=== PATIENT | male | born 1995 | race Caucasian/White ===

== ENCOUNTER 2021-04-21 08:56 | Emergency (ER) | payer OTHER ==
[~2021-04-21] VITALS: Ht 182.9 cm; Wt 104.9 kg
[2021-04-21] MEDS ORDERED: HYDROcodone/APAP 5/325MG 1 TAB TABLET PO ONE (09:30)
[2021-04-21] MEDS ORDERED: DIPHTH,PERTUSS(ACELL),TET TOX 0.5 ML DISP.SYRIN. VAX IM ONE (09:30)
--- NOTE | 2021-04-21 09:49 | PHYS DOC ---
General Adult EDM: Chief Complaint: LACERATION/AVULSION HPI: HPI: Patient is a 25 year old male who presents with laceration to his left thumb. Patient states he was at work when he was trying to remove a log night when his hand slipped and was cut on a piece of stainless steel. Range of motion and se nsation is intact. Denies taking anything for pain prior to arrival. Unknown last tetanus. Denies medical history. Review of Systems: Review of Systems: ROS At least 10 ROS systems have been reviewed and are negative except as documented in the HPI. General: Negative except as outlined in HPI above. Skin: Negative except as outlined in HPI above. HEENT: Negative except as outlined in HPI above. Neck: Negative except as outlined in HPI above. Respiratory: Negative except as outlined in HPI above.. Cardiovascular: Negative except as outlined in HPI above. Abdomen: Negative except as outlined in HPI above. : Negative except as outlined in HPI above. Back/MSK: Negative except as outlined in HPI above. Neuro: Negative except as outlined in HPI above. Psych: Negative except as outlined in HPI above. Heart Score: C/O Chest Pain: No Risk Factors: Risk Factors: DM, Current or recent (<one month) smoker, HTN, HLP, family his tory of CAD, obesity. Risk Scores: Score 0 - 3: 2.5% MACE over next 6 weeks - Discharge Home Score 4 - 6: 20.3% MACE over next 6 weeks - Admit for Clinical Observation Score 7 - 10: 72.7% MACE over next 6 weeks - Early Invasive Strategies Allergies: Allergies: Allergies Coded Allergies Type Severity Reaction Last Updated Verified No Known Drug Allergies 04/21/21 No Physical Exam: PE: Constitutional: Well developed, well nourished, no acute distress, non-toxic appearance. [] HENT: Normocephalic, atraumatic, bilateral external ears normal, oropharynx moist, no oral exudates, nose normal. [] Eyes: PERRLA, EOMI, conjunctiva normal, no discharge. [] Neck: Normal range of motion, no tenderness, supple, no stridor. [] Cardiovascular:Heart rate regular rhythm, no murmur [] Lungs & Thorax: Bilateral breath sounds clear to auscultation [] Abdomen: Bowel sounds normal, soft, no tenderness, no masses, no pulsatile masses. [] Skin: 3 inch, laceration to medial side of left thumb. Back: No tenderness, no CVA tenderness. [] Extremities: No tenderness, no cyanosis, no clubbing, ROM intact, no edema. [] Neurologic: Alert and oriented X 3, normal motor function, normal sensory function, no focal deficits noted. [] Psychologic: Affect normal, judgement normal, mood normal. [] EKG: EKG: [] Radiology/Procedures: Radiology/Procedures: []EXAM: Left hand, 3 views. HISTORY: Thumb laceration. COMPARISON: None. FINDINGS: 3 views of the left hand are obtained. There is no acute fracture, dislocation or subluxation. There is a small incidental benign bone island within the scaphoid. There may be a small cyst within the lunate. There is no radiodense foreign body. IMPRESSION: No acute osseous finding. Electronically signed by: Claudine Vazquez MD (04/21/2021 9:53 AM) [id number] Course & Med Decision Making: Course & Med Decision Making Pertinent Labs and Imaging studies reviewed. (See chart for details) [] 25-year-old male presents with laceration to medial side left thumb after cutting it on a piece of stainless steel at work. Sensation and range of motion are intact. Unknown last tetanus. X-ray ordered to rule out foreign body and fracture. Pain treated in the emergency room. X-ray is unremarkable. Tetanus updated. No signs of foreign body or fracture on x-ray. Wound was cleaned and lidocaine applied to numb the area. Sutures were placed. Patient tolerated procedure well. Discussed aftercare of laceration. Educated on signs of infection to watch for. Ibuprofen for pain. Dragon Disclaimer: Dragangelica Disclaimer: This electronic medical record was generated, in whole or in part, using a voice recognition dictation system. Laceration Repair Lac Repair Indication: 3laceration to left, medial thumb Procedure: The patient was placed in the appropriate position and anesthesia around the laceration was injected. the area was then cleaned. The laceration was closed, 12 sutures placed. The wound area was then dressed with nonadhesive gauze. Total repaired wound length: 3 inches. Other Items: N/A The patient tolerated the procedure well Complications: N/A. Departure Departure Impression: Primary Impression: Laceration of thumb, left Qualified Codes: S61.012A - Laceration without foreign body of left thumb without damage to nail, initial encounter Disposition: HOME / SELF CARE / HOMELESS Condition: STABLE Patient Instructions: Laceration Care, Adult, [id number] Additional Instructions: You were seen in the emergency room for a laceration to your left thumb. X-ray is negative for fracture or foreign body. Ibuprofen at home for pain. Make sure you keep the area clean and dry. Watch for signs of infection such as increased in pain, swelling and warmth, drainage from the laceration. Please follow-up with your work comp physician or return to the emergency room to have sutures removed in 7 to 10 days. Return to the emergency room with worsening symptoms or any concerns you may have. EMERGENCY DEPARTMENT GENERAL DISCHARGE INSTRUCTIONS Thank you for coming to [facility] Emergency Department (ED) today and trusting us with you care. We trust that you had a positive experience in our Emergency Department. If you wish to speak to the department management, you may call the Director at [phone]. YOUR FOLLOW UP INSTRUCTIONS ARE FOLLOWS: 1. Do you have a private Doctor? If you do not have a private doctor, please ask for a resource list of physicians or clinics that may be able to assist you with follow up care. 2. The Emergency Physicain has interpreted your x-rays. The X-Ray specialist will also review them. If there is a change in the findings, you will be notified in 48 hours when at all possible. 3. A lab test or culture has been done, your results will be reviewed and you will be notified if you need a change in treatment. ADDITIONAL INSTRUCTIONS AND INFORMATION: 1. Your care today has been supervised by a physician who is specially trained in emergency care. Many problems require more than one evaluation for a complete diagnosis and treatment. We recommend that you schedule your follow up appointment as recommended to ensure complete treatment of you illness or injury. If you are unable to obtain follow up care and continue to have a problem, or if your condition worsens, we recommend that you return to the ED. 2. We are not able to safely determine your condition over the phone nor are we able to give sound medical advice over the phone. For these safety reasons, if you call for medical advice we will ask you to come to the ED for further evaluation. 3. If you have any questions regarding these discharge instructions please call the ED at [phone]. SAFETY INFORMATION: In the interest of safety, wellness, and injury prevention; we encourage you to wear your sealbelt, if you smoke; quite smoking, and we encourage family to use a protective helmet for bicycling and other sporting events that present an increased risk for head injury. IF YOUR SYMPTOMS WORSEN OR NEW SYMPTOMS DEVELOP, OR YOU HAVE CONCERNS ABOUT YOUR CONDITION; OR IF YOUR CONDITION WORSENS WHILE YOU ARE WAITING FOR YOUR FOLLOW UP APPOINTMENT; EITHER CONTACT YOUR PRIMARY CARE DOCTOR, THE PHYSICIAN WHOSE NAME AND NUMBER YOU WERE GIVEN, OR RETURN TO THE ED IMMEDIATELY. Scripts Cephalexin (KEFLEX) 500 Mg Capsule 1 CAP PO BID for 7 Days, #14 CAP 0 Refills Prov: CRISTIAN KHAN APRN 04/21/21 CRISTIAN KHAN APRN Apr 21, 2021 09:49
--- NOTE | 2021-04-21 09:55 | RAD ---
EXAM: Left hand, 3 views. HISTORY: Thumb laceration. COMPARISON: None. FINDINGS: 3 views of the left hand are obtained. There is no acute fracture, dislocation or subluxati on. There is a small incidental benign bone island within the scaphoid. There may be a small cyst wit hin the lunate. There is no radiodense foreign body. IMPRESSION: No acute osseous finding. Electronically signed by: Claudine Vazquez MD (04/21/2021 9:53 AM) [id number]
[2021-04-21] MEDS ORDERED: LIDOCAINE 1% Multi-Dose 20 ML VIAL. INJ ONE (10:15)
[2021-04-21 11:52] VITALS: BP 137/89
[2021-04-21] MEDS ORDERED: CEPH500C PO (14:34)
== END 2021-04-21 12:06 | disposition home or self-care (01) ==
LOC: ER 08:56
DX: S61.012A Laceration without foreign body of left thumb without damage to nail, initial encounter (principal); Y28.8XXA Contact with other sharp object, undetermined intent, initial encounter; Y93.89 Activity, other specified; Y92.89 Other specified places as the place of occurrence of the external cause; Y99.8 Other external cause status
CPT/HCPCS: 12002; 73130; 90471; 90715; 99283; J3490